=== PATIENT | male | born 1965 | race Caucasian/White ===

== ENCOUNTER 2018-03-17 08:49 | Day surgery (SDC) | payer OTHER ==
[2018-03-14 09:59] VITALS: BMI 28.0
[2018-03-17] MEDS ORDERED: ROPIVACAINE HCL 0.5% 30ML VIAL ONE (11:26)
[2018-03-17] MEDS ORDERED: DEXAMETHASONE SOD PHOSPHATE/PF 10 MG/ML SDV ONE (11:26)
[2018-03-17] MEDS ORDERED: MIDAZOLAM HCL 2 MG/2 ML SINGLE DOSE VIAL ONE (11:26)
[2018-03-17] MEDS ORDERED: BUPIVACAINE HCL/EPINEPHRINE/PF 30 ML VIAL IJ ONE (11:29)
[2018-03-17] MEDS ORDERED: PROPOFOL 20 ML ONE ×9 (12:29→14:11)
[2018-03-17] MEDS ORDERED: BUPIVACAINE 0.25% /EPI 1:200,000 10 ML VIAL INF ONE (12:30)
--- NOTE | 2018-03-17 14:49 | OP ---
Operative Note - Note: Operative Date: 03/17/18 Pre-Operative Diagnosis: Left shoulder RCT, Biceps spasm, symptomatic hardware Operation: LSA, RCR, biceps tenodesis, EL Post-Operative Diagnosis: Same as Pre-op Surgeon: Hardy Pittman Anesthesiologist/DRAPERY SEAMSTRESS: Eliud Choi Anesthesia: General Operative Report Dictated: Yes
--- NOTE | 2018-03-17 14:49 | DS ---
Physical Examination Vital Signs: Vital Signs Temperature 97.7 F 03/17/18 09:07 Pulse Rate 53 L 03/17/18 09:07 Respiratory Rate 20 03/17/18 09:07 Blood Pressure 141/88 03/17/18 09:07 O2 Sat by Pulse Oximetry (%) 98 03/17/18 09:07 Discharge Summary Reason For Visit: LEFT SHOULDER BICEPS TEAR, PAINFUL HARDWARE Condition: Good - Instructions Diet, Activity, Other Instructions: Post Operative Instructions: Shoulder Arthroscopy Dr Hardy Pittman 1. Pain following a Shoulder Arthroscopy is variable and can be significant. Some patients will have more pain than others. You have been provided with a prescription for medication that contains a narcotic. You are not allowed to drive while on this medication. You can take Tylenol (Acetaminophen) when taking the pain medication ( it will result in an overdose). Feel free to take medications such as Ibuprofen or Naprosyn in addition to the pain medicine if you do not have any problems with the NSAID class of medications. 2. Apply ice to the shoulder for 15 minutes every hour. You may continue this for as many days as necessary. 3. You may find sleeping on an incline (reclining chair) to be more comfortable for the first few days. 4. You must remain in your sling at all times except when showering. 5. You are not to use your arm to reach for anything, lift anything 6. You may remove the bandages in 48 hours. You may shower at that point. 7. Place band-aids on the sutures after your shower.Do not put any creams or lotions on the incision until after the sutures are removed. 8. Please call the office to schedule a visit to have your sutures removed. 9. If for any reason you believe you may have an infection or are concerned, please feel free to call me. I can be reached through our office number 24 hours a day. 10. Please call our office with any questions; we will review the surgical findings during your post-operative visit. Disposition: HOME - Home Medications Comprehensive Discharge Medication List: Ambulatory Orders Apremilast [Otezla] 30 mg PO BID 04/06/16 Gabapentin 300 mg PO DAILY 04/06/16 Gabapentin 600 mg PO HS 04/06/16 Glucosa Reina 2Kcl/Chondroitin Reina [Glucosamine & Chondroitin Cap] 1 each PO BID 01/14 Multivitamins [Tab-A-Vit -] 1 tab PO DAILY 04/06/16 Vevay-3S/Dha/Epa/Fish Oil [Fish Oil 1,200 mg Softgel] 1 cap PO BID 04/06/16 Pantoprazole Sodium [Protonix] 40 mg PO DAILY 04/06/16 Rosuvastatin Calcium [Crestor] 20 mg PO DAILY 04/06/16 Candesartan/Hydrochlorothiazid [Atacand Hct 32-25 mg -] 1 tab PO DAILY 04/16/16 Celecoxib [Celebrex] 200 mg PO BID 03/14/18
[2018-03-17] MEDS ORDERED: HYDROmorphone HCL 2 MG TABLET ONE (15:20)
--- NOTE | 2018-03-17 16:09 | SURG ---
Surgery Piercing Specialist Note Piercing Specialist: Tamia Mckeon PA-C Date of Service: 03/17/18 Diagnosis: Left shoulder RCT, Biceps spasm, symptomatic hardware Procedure: LSA, RCR, biceps tenodesis, EL I was present for the entirety of the operative procedure. For further detail, please refer to operative report. Visit type - Case Type Case Type: Scheduled - Emergency Emergency Visit: No - New patient This patient is new to me today: Yes Date on this admission: 03/17/18
[2018-03-17 16:20] VITALS: TEMP 98
[2018-03-17] MEDS ORDERED: HYDROmorphone HCL 2 MG TABLET PO ONE (16:45)
[2018-03-17 17:31] VITALS: BP 118/65; PULSE 62
--- NOTE | 2018-03-21 16:15 | PATH ---
Surgical Pathology Report Patient Name: SOFIA GEIGER Med. Rec. #: [id number] /Age/Gender: 1965 (Age: 52) / M Account: [id number] Location: [facility] Taken: 03/17/2018 Received: 03/17/2018 Reported: 03/21/2018 Physicians: Hardy Pittman M.D. Specimen(s) Received A: SHAVINGS OF LEFT SHOULDER B: EXPLANTS OF LEFT SHOULDER Clinical History Left shoulder biceps tear, painful hardware Final Diagnosis A. LEFT SHOULDER SHAVINGS: FRAGMENTS OF FIBROCARTILAGINOUS TISSUE AND SYNOVIAL TISSUE WITH DEGENERATIVE CHANGE. B. EXPLANTS LEFT SHOULDER, REMOVAL: STENOTYPE MACHINE OPERATOR, GROSS EXAMINATION ONLY. Electronically Signed Gabi Lovelace M.D. Gross Description A. Received in formalin, labeled "shavings left shoulder," is a 3.0 x 3.0 x 0.3 cm. aggregate of tirado-yellow soft tissue fragments. A direct customer service representative portion is submitted in one cassette. B. Received fresh labeled "explants left shoulder," are 2 metallic screws averaging 5 cm in length. Also received within the same container is a 0.7 cm in greatest dimension tirado, plastic foreign body. No soft tissue is present. No sections are submitted, gross only. 03/20/201803/20/2018
== END 2018-03-17 16:10 | disposition home or self-care (01) ==
LOC: FASU 08:49
PROVIDERS: ATTEND Orthopaedic Surgery
PROC: 0RNK4ZZ Release Left Shoulder Joint, Percutaneous Endoscopic Approach (ICD-10-PCS; 2018-03-17)
PROC: 0RCK4ZZ Extirpation of Matter from Left Shoulder Joint, Percutaneous Endoscopic Approach (ICD-10-PCS; 2018-03-17)
PROC: 0RPK04Z Removal of Internal Fixation Device from Left Shoulder Joint, Open Approach (ICD-10-PCS; 2018-03-17)
PROC: 0LS20ZZ Reposition Left Shoulder Tendon, Open Approach (ICD-10-PCS; 2018-03-17)
PROC: 0LQ24ZZ Repair Left Shoulder Tendon, Percutaneous Endoscopic Approach (ICD-10-PCS; principal; 2018-03-17 11:00)
DX: M75.102 Unspecified rotator cuff tear or rupture of left shoulder, not specified as traumatic (principal); M66.812 Spontaneous rupture of other tendons, left shoulder; T84.84XA Pain due to internal orthopedic prosthetic devices, implants and grafts, initial encounter; Y79.3 Surgical instruments, materials and orthopedic devices (including sutures) associated with adverse incidents; Y92.89 Other specified places as the place of occurrence of the external cause
CPT/HCPCS: 88300-TC; 88304-TC